=== PATIENT | male | born 1985 | race Two or more races ===

== ENCOUNTER 2023-03-30 12:50 | Emergency (ER) | payer OTHER ==
[~2023-03-30] VITALS: Ht 167.6 cm; Wt 61.4 kg
[2023-03-30 14:24] VITALS: TEMP 98
[2023-03-30] MEDS ORDERED: IOHEXOL 9 MG/ML 500 ML BOTTLE PO ONE (14:45)
[2023-03-30 15:10] LABS: BASOPHILS % (AUTO) 0.6 % (0.0-2.0); EOSINOPHILS % (AUTO) 0.6 % (1.0-6.0); HEMATOCRIT 50.3 % (41-53); HEMOGLOBIN 17.4 g/dL (13.5-17.5); LYMPHOCYTES # (AUTO) 1.8 K/uL (1.0-4.8); LYMPHOCYTES % (AUTO) 20.3 % (22.0-44.0); MEAN CORPUSCULAR HEMOGLOBIN 30.7 pg (26.0-34.0); MEAN CORPUSCULAR HGB CONC 34.5 G/dL (31.0-37.0); MEAN CORPUSCULAR VOLUME 89 fL (80-100); MONOCYTES # (AUTO) 0.6 K/uL (0.1-1.0); MONOCYTES % (AUTO) 6.2 % (2.0-9.0); NEUTROPHILS # (AUTO) 6.5 K/uL (1.8-7.7); NEUTROPHILS % (AUTO) 72.3 % (40.0-70.0); PLATELET COUNT (AUTO) 261 K/uL (150-450); RED BLOOD CELL COUNT(AUTO) 5.65 MIL/uL (4.50-5.90); RED CELL DISTRIBUTION WIDTH 12.6 % (11.5-14.5)
[2023-03-30 15:20] LABS: CHLORIDE 102 mmol/L (98-107); POTASSIUM 4.1 mmol/L (3.5-5.1); SODIUM SERUM 136 mmol/L (136-145)
[2023-03-30 15:47] LABS: ANION GAP 4 mmol/L (8-16); CARBON DIOXIDE 30 mmol/L (22-29); CREATININE 0.86 mg/dL (0.60-1.30); GLOMERULAR FILTR. RATE CALC > 60 mL/min (>60); GLUCOSE,RANDOM 108 mg/dL (70-110); UREA NITROGEN, BLOOD 11 mg/dL (7-18)
[2023-03-30] MEDS ORDERED: IOHEXOL 350 MG/ML 100 ML VIAL ONE (15:54)
[2023-03-30] MEDS ORDERED: SODIUM CHLORIDE 0.9% 100 ML ONE (15:54)
[2023-03-30 18:00] VITALS: BP 120/70; PULSE 82; RESP 12
== END 2023-03-30 18:24 ==
LOC: EMS 12:53
CPT/HCPCS: 99285; 74177; 80048; 85025; 36415; Q9967; J7050